=== PATIENT | male | born 1950 | race Hispanic/Latino ===

== ENCOUNTER 2023-10-18 06:00 | Day surgery (SDC) | payer OTHER ==
[2023-10-13 12:05] LABS: BASOPHILS # (AUTO) 0.03 K/uL (0.00-0.20); BASOPHILS % (AUTO) 0.4 % (0.0-5.0); EOSINOPHILS # (AUTO) 0.24 K/uL (0.00-0.70); EOSINOPHILS % (AUTO) 2.9 % (0.0-8.0); HEMATOCRIT 45.2 % (42-54); IMMATURE GRANULOCYTE ABSOLUTE 0.03 K/uL (0-1); LYMPHOCYTES # (AUTO) 1.7 K/uL (1.0-4.8); LYMPHOCYTES % (AUTO) 19.9 % (21.0-51.0); MEAN CORPUSCULAR HEMOGLOBIN 29.6 pg (27.0-33.0); MEAN CORPUSCULAR HGB CONC 34.7 g/dL (32.0-36.0); MEAN CORPUSCULAR VOLUME 85.1 fL (79-99); MONOCYTES # (AUTO) 0.8 K/uL (0.1-1.0); MONOCYTES % (AUTO) 9.5 % (3.0-13.0); NEUTROPHILS # (AUTO) 5.6 K/uL (1.8-7.7); NEUTROPHILS % (AUTO) 66.9 % (40.0-77.0); PLATELET COUNT (AUTO) 151 K/uL (130-400); RED BLOOD CELL COUNT(AUTO) 5.31 MIL/uL (4.50-6.20); RED CELL DISTRIBUTION WIDTH 13.1 % (11.0-15.5); WHITE BLOOD COUNT (AUTO) 8.3 K/uL (4.8-10.8)
[2023-10-13 12:14] VITALS: BP 144/76; PULSE 57; RESP 17
[2023-10-13 12:16] LABS: PROTHROMBIN TIME 11.8 SEC (9.6-11.6)
[2023-10-13 12:17] LABS: PARTIAL THROMBOPLASTIN TIME 29.8 SEC (26.3-35.5)
[2023-10-13 12:25] LABS: CREATININE 0.9 mg/dL (0.5-1.3); POTASSIUM 3.4 mmol/L (3.5-5.1)
[2023-10-18] VITALS (18 sets, daily range): BP systolic 110–140; BP diastolic 66–78; PULSE 56–68; RESP 14–16
[~2023-10-18] VITALS: Ht 162.6 cm; Wt 78.7 kg
[~2023-10-18 06:00] MED LIST: AMLO-257 PO; ASPI-556 PO; POTA-364 PO; PRAV40TA3 PO; SPIR25TA6 PO
[2023-10-18] MEDS ORDERED: CEFAZOLIN SODIUM 2 GM VIAL ONE (06:11)
[2023-10-18] MEDS ORDERED: 0.9%NACL 1000ML 0 ML IV ONE (06:12)
[2023-10-18] MEDS: LACTATED RINGERS 1000ML 1,000 ML IV ONE (07:00)
[2023-10-18] MEDS ORDERED: MIDAZOLAM HCL 1 MG/ML 2ML VIAL ONE (07:09)
[2023-10-18] MEDS ORDERED: FENTANYL CITRATE PF 50 MCG/1 ML 2ML VIAL ONE ×3 (07:09→08:21)
[2023-10-18] MEDS ORDERED: BUPIVACAINE IJ ONE (07:15)
[2023-10-18] MEDS ORDERED: EPI IJ ONE (07:15)
[2023-10-18] MEDS ORDERED: LIDOCAINE 2%-EPI 1:200,000 20 ML VIAL IJ ONE (07:16)
[2023-10-18] MEDS ORDERED: ROPIVACAINE 0.5% 5MG/ML 30ML ONE (07:16)
[2023-10-18] MEDS ORDERED: ROCURONIUM BROMIDE 10MG/1ML 5ML VL ONE (07:18)
[2023-10-18] MEDS ORDERED: PROPOFOL 10 MG/ML 20ML VIAL IV ONE (07:18)
[2023-10-18] MEDS ORDERED: ONDANSETRON 4MG INJ ONE (07:18)
[2023-10-18] MEDS ORDERED: PHENYLEPHRINE HCL 10 MG/ML 1ML VIAL IV ONE (07:40)
[2023-10-18] MEDS ORDERED: BUPIVACAINE/PF 0.25% 30ML VIAL IJ ONE (07:42)
[2023-10-18] MEDS: CEFAZOLIN SODIUM 2 GM VIAL IVPB ONE ×2 (07:45)
[2023-10-18] MEDS ORDERED: GLYCOPYRROLATE 0.2 MG/ML 5 ML VIAL ONE (08:15)
[2023-10-18] MEDS ORDERED: NEOSTIGMINE METHYLSULFATE 1MG/ML IV ONE (08:15)
[2023-10-18] MEDS ORDERED: GABA-529 PO (08:19)
[2023-10-18] MEDS ORDERED: TRAM50TA4 PO (08:19)
[2023-10-18] MEDS ORDERED: DOCU-116 PO (08:19)
[2023-10-18] MEDS ORDERED: METH-662 PO (08:19)
[2023-10-18] MEDS: BUPIVACAINE/EPI/PF 0.5% 30ML VIAL IJ ONE (08:20)
== END 2023-10-18 10:28 | disposition home or self-care (01) ==
LOC: DAH 06:00
PROVIDERS: ATTEND Surgery
DX: K40.90 Unilateral inguinal hernia, without obstruction or gangrene, not specified as recurrent (principal); I10 Essential (primary) hypertension; I25.2 Old myocardial infarction; E66.01 Morbid (severe) obesity due to excess calories; Z68.29 Body mass index [BMI] 29.0-29.9, adult; Z86.73 Personal history of transient ischemic attack (TIA), and cerebral infarction without residual deficits; Z82.49 Family history of ischemic heart disease and other diseases of the circulatory system; Z82.3 Family history of stroke; Z82.5 Family history of asthma and other chronic lower respiratory diseases; Z83.79 Family history of other diseases of the digestive system; Z87.891 Personal history of nicotine dependence; Z79.82 Long term (current) use of aspirin; Z79.899 Other long term (current) drug therapy
CPT/HCPCS: 80048; 85025; 85610; 85730; 36415; 93005; 49650; 64486; A6260; A4663; J7030; J7120 ×2; A4344; J3010 ×3; J0665; J3490 ×5; J2250; J2704; J2405; J2710; J2795; J2371; J0690 ×2; C9250; A4649 ×2; A4930 ×2; C1781; A4215; A4223; A4222; A4221; A4600